=== PATIENT | female | born 1970 | race Caucasian/White ===

== ENCOUNTER → 2017-04-07 | Outpatient (CLI) | payer BC ==
--- NOTE | 2017-04-07 16:15 | KCIC ---
Ultrasound Pelvis Indication: Pelvic pain Technique: Multiple real-time grayscale images were obtained over the pelvis transabdominal and transvaginal. Color Doppler imaging was utilized. Findings: The uterus is normal in size measuring 9.0 x 5.2 x 6.0 cm. The endometrium is also within normal limits measuring 4 mm in thickness a cervical nabothian cyst is noted. There is a anterior myometrial mass likely representing a fibroid that measures 4.0 x 3.6 x 4.1 cm. A smaller myometrial mass seen in the posterior uterine fundus measuring 1.2 cm. The right ovary measures 2.2 x 1.6 x 2.5 cm. No abnormal right ovarian lesions are identified. Normal blood flow is identified. Left ovary is not identified. No pelvic free fluid is identified. Impression: Fibroid uterus Electronically signed by: Jeffrey Mcmillan MD (04/07/2017 4:12 PM)
== END | disposition home or self-care (01) ==
LOC: KCIC US 15:10
PROVIDERS: ATTEND Family Medicine
DX: D25.9 Leiomyoma of uterus, unspecified (principal); N88.8 Other specified noninflammatory disorders of cervix uteri
CPT/HCPCS: 76830; 76856

== ENCOUNTER → 2019-01-16 | Outpatient (CLI) | payer BC ==
[2017-09-14 17:48] VITALS: BP 112/69
[~2019-01-16] MED LIST: MULT1TAB52 PO
== END | disposition home or self-care (01) ==
LOC: PMGWOUND 09:13
PROVIDERS: ATTEND Preventive Medicine Undersea and Hyperbaric Medicine
DX: L97.313 Non-pressure chronic ulcer of right ankle with necrosis of muscle (principal); F41.9 Anxiety disorder, unspecified; F32.9 Major depressive disorder, single episode, unspecified; Z90.710 Acquired absence of both cervix and uterus
CPT/HCPCS: 11042; G0463

== ENCOUNTER → 2019-01-23 | Outpatient (CLI) | payer BC ==
[2017-09-14 17:48] VITALS: BP 112/69
== END | disposition home or self-care (01) ==
LOC: PMGWOUND 11:12
PROVIDERS: ATTEND Preventive Medicine Undersea and Hyperbaric Medicine
DX: L97.313 Non-pressure chronic ulcer of right ankle with necrosis of muscle (principal); L97.113 Non-pressure chronic ulcer of right thigh with necrosis of muscle; F41.9 Anxiety disorder, unspecified; F32.9 Major depressive disorder, single episode, unspecified; Z90.710 Acquired absence of both cervix and uterus
CPT/HCPCS: 99213; G0463

== ENCOUNTER → 2019-02-01 | Outpatient (CLI) | payer BC ==
[2017-09-14 17:48] VITALS: BP 112/69
== END | disposition home or self-care (01) ==
LOC: PMGWOUND 10:31
PROVIDERS: ATTEND Preventive Medicine Undersea and Hyperbaric Medicine
DX: L02.416 Cutaneous abscess of left lower limb (principal); L97.10 Non-pressure chronic ulcer of unspecified thigh; F41.9 Anxiety disorder, unspecified; F32.9 Major depressive disorder, single episode, unspecified; Z90.710 Acquired absence of both cervix and uterus
CPT/HCPCS: 99213; G0463